=== PATIENT | female | born 1955 | race African-American/Black ===

== ENCOUNTER 2017-08-12 08:35 | Day surgery (SDC) | payer SELFPAY ==
[2017-08-11 11:17] VITALS: BMI 28.3
[2017-08-12] MEDS ORDERED: PROPOFOL 20 ML ONE ×4 (10:18→11:40)
[2017-08-12] MEDS ORDERED: MIDAZOLAM HCL 2 MG/2 ML SINGLE DOSE VIAL ONE ×3 (10:18)
[2017-08-12] MEDS ORDERED: ROCURONIUM BROMIDE 50 MG/5 ML VIAL ONE (10:18)
[2017-08-12] MEDS ORDERED: fentaNYL CITRATE 250 MCG/5 ML VIAL ONE (10:18)
[2017-08-12] MEDS ORDERED: EPINEPHrine/PF 1 MG/1 ML (1:1,000) AMPULE ONE ×2 (10:48→13:22)
[2017-08-12] MEDS ORDERED: BUPIVACAINE HCL/PF 0.25% (2.5MG/ML) 10 ML VIAL ONE (10:49)
[2017-08-12] MEDS ORDERED: HEPARIN NA (PORCINE) 5,000 UNITS/ML 1ML VIAL ONE (11:00)
[2017-08-12] MEDS ORDERED: CLINDAMYCIN PHOSPHATE 600 MG/4 ML VIAL ONE (11:05)
[2017-08-12] MEDS ORDERED: CLINDAMYCIN PHOSPHATE 600 MG/4 ML VIAL IVPB ONE (11:10)
[2017-08-12] MEDS ORDERED: DEXAMETHASONE SOD PHOSPHATE 4 MG/1 ML VIAL ONE (11:11)
[2017-08-12] MEDS ORDERED: ONDANSETRON 4 MG/2 ML VIAL ONE (11:11)
[2017-08-12] MEDS ORDERED: HEPARIN NA (PORCINE) 5,000 UNITS/ML 1ML VIAL SQ ONE (11:12)
[2017-08-12] MEDS ORDERED: LIDOCAINE HCL 1%, 10 MG/ML (20ML VIAL) ONE (13:22)
[2017-08-12] MEDS ORDERED: LIDOCAINE HCL 1%, 10 MG/ML (20ML VIAL) INF ONE (13:24)
[2017-08-12] MEDS ORDERED: EPINEPHrine/PF 1 MG/1 ML (1:1,000) AMPULE SQ ONE (13:26)
[2017-08-12] MEDS ORDERED: BACITRACIN 15 GM TUBE TOPICAL OINTMENT ONE (14:19)
[2017-08-12] MEDS ORDERED: NITROGLYCERIN 2% OINTMENT - 1GM PACKET TD ONE ×2 (14:25→15:00)
[2017-08-12] MEDS ORDERED: NEOSTIGMINE METHYLSULFATE 0.5 MG/ML - 10 ML MDV ONE (14:30)
[2017-08-12] MEDS ORDERED: oxyCODONE HCL 5 MG TABLET PO PRN (14:59)
[2017-08-12] MEDS ORDERED: ONDANSETRON 4 MG/2 ML VIAL IVPB PRN (14:59)
[2017-08-12] MEDS ORDERED: MORPHINE SULFATE 10 MG/1 ML *VIAL IVPUSH PRN ×2 (14:59→15:33)
[2017-08-12] MEDS ORDERED: LACTATED RINGERS SOLUTION 1,000 ML IV SCH ×2 (15:00→15:15)
--- NOTE | 2017-08-12 15:03 | OP ---
Operative Note - Note: Operative Date: 08/12/17 Pre-Operative Diagnosis: Abdominal deformity Operation: abdominoplasty with liposuction Post-Operative Diagnosis: Same as Pre-op Surgeon: Leobardo Vela Anesthesia: General Drains & Tubes with Location: VERNON x 2 abdomen
[2017-08-12] MEDS ORDERED: ONDANSETRON 4 MG/2 ML VIAL IVPUSH PRN (15:05)
[2017-08-12] MEDS ORDERED: CLINDAMYCIN PHOSPHATE 300 MG/2 ML VIAL ONE (18:39)
[2017-08-12] MEDS ORDERED: CLINDAMYCIN PHOSPHATE 300 MG/2 ML VIAL IVPB ONE (18:43)
[2017-08-13] MEDS ORDERED: PT OWN MED DRAWER 7, Y5N ONE (01:14)
[2017-08-13] MEDS: CLINDAMYCIN 300 MG PREMIX IVPB 300 MG/50 ML BAG IVPB SCH ×3 (01:32→09:37)
[2017-08-13] MEDS ORDERED: HEPARIN NA (PORCINE) 5,000 UNITS/ML 1ML VIAL SQ SCH (07:00)
--- NOTE | 2017-08-13 07:32 | PN ---
Progress Note (short form) - Note Progress Note: VSS, ambulating well, All tissues viable. OK for discharge
--- NOTE | 2017-08-13 10:25 | OP ---
DATE OF OPERATION: 08/12/2017 TITLE OF PROCEDURE: Abdominoplasty with mid epigastric and flank liposuction. ATTENDING SURGEON: Leobardo Vela MD ANESTHESIA: General endotracheal anesthesia. PREOPERATIVE DIAGNOSIS: Aesthetic abdominal deformity. POSTOPERATIVE DIAGNOSIS: Aesthetic abdominal deformity. The patient is seen in the holding area. Risks, benefits and alternatives to the procedure are discussed at length. She is marked in the standing position awake and aware of all incisions and resulting scars. Patient is counseled on all risks, benefits and alternatives to the procedure, understands and agrees to proceed. Sequential compression stockings, SAMMI hose are applied in the holding area. Subcutaneous heparin 5000 units is given in the holding area. Patient is brought to the operating room. A gram of Ancef is given preoperatively. She is positioned by surgical and anesthesia teams. She is prepped and draped in standard surgical fashion after which a timeout was called. Patient, procedure, side, sites are verified. At this point, an incision is made along the infrapannicular crease. Dissection carried down to the level of the abdominal wall fascia. Dissection is then carried along the abdominal wall fascia to the level of the umbilicus. Perforating blood vessels are ligated with suture and Bovie cautery as needed. The umbilicus is circumcised and developed on a fibrofatty stalk at the level of the abdominal wall fascia. Dissection is then carried beyond the umbilicus to the xiphoid process and the midline costal margins bilaterally. At this point, a midline plication is performed, first with a series of interrupted buried [id number] 1 Prolene imbricating sutures along the midline of the fascia. A line of these is performed superior to the umbilicus and a separate line inferior to the umbilicus. A 2nd layer is then performed with a running locking 1 Prolene suture, again above and below the umbilicus, leaving a wide berth for the umbilicus to be translocated. Several interrupted reinforcing sutures with 0 Prolene are placed in certain bay positions. The endpoint is a smooth even contour of the abdominal wall fascia with even uniform tension. Hemostasis meticulously achieved at this point. The deep surface of the abdominoplasty flap is thinned of its sub-Luis Fernando fat with facelift scissors. Meticulous hemostasis once again achieved. Patient is brought to a seated upright position at 30 degrees where the flap is transposed and excess skin and fat are removed. The skin is tailor tacked. The position of the umbilicus is marked. A Star Trek pattern for umbilical translocation is made in the abdominoplasty flap. The umbilicus is converted to the same shape and is then translocated and inset with a series of interrupted buried deep dermal 3-0 Monocryl suture followed by a running 4-0 nylon suture. The inferior 6 o'clock flap of the defect is inset into the 6 o'clock notch of the umbilicus. A size 10 flat J-P drain is brought out through either side of the incision, the right side in the superior recess of the wound, the left side in the inferior recess of the wound. The closure is then performed after tailor tacking with marija dog ear excision and closure with interrupted superficial fascial system buried 2-0 Vicryl suture followed by a series of interrupted buried deep dermal 3-0 Monocryl suture. Prior to final closure, wetting solution is infiltrated. The wetting solution is a liter of normal saline with 1 ampule of 1:1000 epinephrine and 20 mL of 1:100,000 lidocaine 1% plain. A full 20 minutes is waited for hemostatic effect after which the liposuction is commenced with 3- and 4-mm cannulas in bilateral flanks and the mid epigastrium. Total lipoaspirate for this case is 100 mL per flank and 350 mL in the mid epigastrium. Endpoint is a smooth even contour. There is good vascularity of the flap seen throughout the process. Drain is placed to bulb suction. The completion of the abdominal closure is performed with a running 3-0 PDS V-Loc suture in the mid dermis. Several 5-0 nylon skin sutures are placed. Dressings are applied with full-length Steri-Strips, bacitracin, Xeroform within the umbilicus, ABD, gauze and an abdominal binder applied. Patient is transferred in a flexed position to her hospital bed, having tolerated the procedure well. Transferred to recovery without complication. Ira [id number]
--- NOTE | 2017-08-13 10:31 | PN ---
Progress Note (short form) - Note Progress Note: S: Pt POD #1, S/P Abdominoplasty, OOB in Chair, looks great O: VSS pt stable, taking PO , pain 1-2/10, on PO meds A/P Pt offers no complaints. Going home today, No apparent anestheric complications noted.
[2017-08-13 12:12] VITALS: BP 118/72; PULSE 78; TEMP 98.4
--- NOTE | 2017-08-14 17:25 | PATH ---
Surgical Pathology Report Patient Name: RAY MARTINEZ [facility]. Rec. #: [id number] /Age/Gender: 1955 (Age: 61) / F Account: [id number] Location: AMBULATORY SURG Taken: 08/12/2017 Received: 08/13/2017 Reported: 08/14/2017 Physicians: Leobardo Vela Specimen(s) Received A: ABDOMINAL TISSUE B: SUCTIONED FAT Clinical History Cosmetic Final Diagnosis A. ABDOMINAL TISSUE, ABDOMINOPLASTY UNREMARKABLE SKIN AND FIBROADIPOSE TISSUE. MACROSCOPIC DIAGNOSIS. B. SUCTIONED FAT, ABDOMINOPLASTY: BLOOD AND ADIPOSE TISSUE. MACROSCOPIC DIAGNOSIS. Electronically Signed Tara Eng M.D. Gross Description A. Received in formalin labeled "abdominal tissue," is an 845 g, 29.0 x 15.0 x 4.0 cm aggregate of 2 brown, triangular, unoriented portions of skin with underlying yellow, lobulated adipose tissue. No epidermal lesions are identified. Sectioning reveals unremarkable underlying soft tissue. No sections are submitted, gross only. B. Received is approximately 400 mL of fat and blood. No sections are submitted, gross only. /08/13/2017 saudi08/13/2017
== END 2017-08-13 11:17 | disposition home or self-care (01) ==
LOC: JASUSAT 08:35 → J8W 20:07 → JASUSAT 08-13 11:17
PROVIDERS: ATTEND Plastic Surgery
PROC: 0J063ZZ Alteration of Chest Subcutaneous Tissue and Fascia, Percutaneous Approach (ICD-10-PCS; 2017-08-12)
PROC: 0J080ZZ Alteration of Abdomen Subcutaneous Tissue and Fascia, Open Approach (ICD-10-PCS; principal; 2017-08-12 10:30)
DX: L98.7 Excessive and redundant skin and subcutaneous tissue (principal)
CPT/HCPCS: 74018-TC-FY; 74190-TC-FY; 88300-TC; 94010; 94760; J1644

== ENCOUNTER 2017-09-01 14:03 | Emergency (ER) | payer OTHER ==
[2017-09-01 14:20] VITALS: TEMP 98.6; BMI 27.8
[2017-09-01 14:57] LABS: BASO % 2.5 % (0-2.0); EOS % 4.2 % (0-4.5); HEMATOCRIT 42.6 % (32.4-45.2); HEMOGLOBIN 14.2 GM/dl (10.7-15.3); LYMPH % 34.4 % (8-40); MCH 29.9 pg (25.7-33.7); MCHC 33.3 g/dl (32.0-36.0); MEAN CELL VOLUME 89.7 fl (80-96); MEAN PLT VOLUME 7.6 fl (7.5-11.1); MONO % 9.6 % (3.8-10.2); NEUT % 49.3 % (42.8-82.8); PLATELET COUNT 367 K/MM3 (134-434); RBC 4.75 M/mm3 (3.60-5.2); RDW 12.6 % (11.6-15.6); WHITE BLOOD COUNT 7.9 K/mm3 (4.0-10.8)
[2017-09-01 15:05] LABS: URINE BILIRUBIN Negative (NEGATIVE); URINE BLOOD Negative (NEGATIVE); URINE GLUCOSE (UA) Negative (NEGATIVE); URINE KETONE Negative (NEGATIVE); URINE NITRITE Negative (NEGATIVE); URINE PROTEIN Negative (NEGATIVE); URINE UROBILINOGEN 0.2 (0.2-1.0)
[2017-09-01 15:15] LABS: URINE APPEARANCE HAZY; URINE COLOR YELLOW; URINE LEUK ESTERASE 2+ (NEGATIVE)
[2017-09-01 15:18] LABS: ALBUMIN 3.5 g/dl (3.5-5.0); ALK PHOS 68 U/L (32-92); ANION GAP 9 (8-16); BLOOD UREA NITROGEN 10 mg/dl (7-18); CALCIUM 9.2 mg/dl (8.4-10.2); CHLORIDE 101 mmol/L (98-107); CO2 25 mmol/L (22-28); CREATININE 0.8 mg/dl (0.6-1.3); GLUCOSE,RANDOM 100 mg/dl (74-106); POTASSIUM 3.6 mmol/L (3.5-5.1); SGOT/AST 26 U/L (10-42); SGPT/ALT 22 U/L (10-40); SODIUM 135 mmol/L (136-145); TOT PROT 7.4 g/dl (6.4-8.3)
[2017-09-01 15:27] LABS: URINE RBC 0-3 /hpf (0-3)
[2017-09-01 15:29] LABS: BILIRUBIN,TOTAL < 0.5 mg/dl (0.2-1.0)
--- NOTE | 2017-09-01 16:12 | PDOC ---
History of Present Illness <Yash Finney - Last Filed: 09/01/17 17:39> - History of Present Illness Initial Comments: 09/01/17 16:08 "The patient is a 61 year old female, with a significant past medical history of hypertension and recent abdominoplasty 08/12, who presents to the emergency department with abdominal discomfort, bloating and decrease in appetite. The patient states that since her abdominoplasty, she has had abdominal discomfort described as a tightness around her waist that is made worse with movement. The patient states she is not having any significant abdominal pain but that she feels like something is squeezing her abdomen. Pt was initially seen in another ER for this complaint and had a CT scan to r/o abscess. The CT was normal and pt was given a course of PO abx, which she completed. She subsequently developed diarrhea and was started on Flagyl for this, which she is still taking. Pt states her diarrhea has resolved. Pt denies recent fevers, chills. She denies recent nausea, vomit, diarrhea or constipation. She denies recent dysuria, frequency, urgency or hematuria. She denies recent chest pain or shortness of breath. Allergies: Multiple Allergies. See nursing notes. Past surgical history: Abdominoplasty " <Mike Joaquin - Last Filed: 09/01/17 19:13> - General Chief Complaint: Pain Stated Complaint: ABDOMINAL PAIN Time Seen by Provider: 09/01/17 14:22 Past History <Yash Finney - Last Filed: 09/01/17 17:39> - Past Medical History Anemia: No Asthma: No Cancer: No Cardiac Disorders: No CVA: No COPD: No CHF: No DVT: No Dementia: No Diabetes: No GI Disorders: No Disorders: No HTN: Yes Hypercholesterolemia: No Liver Disease: No Seizures: No Thyroid Disease: No - Surgical History Abdominal Surgery: Yes (abdominoplasty x 3 wks ago) Appendectomy: No Cardiac Surgery: No Cholecystectomy: No Lung Surgery: No Neurologic Surgery: No Orthopedic Surgery: No - Suicide/Smoking/Psychosocial Hx Smoking History: Never smoked Have you smoked in the past 12 months: No Number of Cigarettes Smoked Daily: 0 Hx Alcohol Use: No Drug/Substance Use Hx: No Substance Use Type: None Hx Substance Use Treatment: No <Mike Joaquin - Last Filed: 09/01/17 19:13> - Past Medical History Allergies/Adverse Reactions: Allergies Allergy/AdvReac Type Severity Reaction Status Date / Time cephalexin monohydrate Allergy Severe ANAPHYLACTIC Verified 09/01/17 14:06 [From Keflex] REACTION latex Allergy Severe Rash Verified 09/01/17 14:06 peach [Rice] Allergy Severe Swelling Verified 09/01/17 14:06 ALMOND Allergy Severe Swelling Uncoded 08/12/17 09:34 CHERRIES Allergy Severe Swelling Uncoded 08/12/17 09:34 Home Medications: Ambulatory Orders Hydrochlorothiazide [Hctz -] 25 mg PO DAILY 11/23/13 Amlodipine Besylate/Benazepril [Lotrel 5-20 mg Capsule] 1 each PO DAILY Docusate Sodium [Colace -] 100 mg PO DAILY #30 capsule 09/01/17 Metronidazole 500 mg PO TID 09/01/17 Sennosides [Senna] 2 tab PO DAILY #30 tablet 09/01/17 Review of Systems - Review of Systems Comments:: 09/01/17 16:11 "GENERAL/CONSTITUTIONAL: No fever or chills. No weakness. HEAD, EYES, EARS, NOSE AND THROAT: No change in vision. No ear pain or discharge. No sore throat. CARDIOVASCULAR: No chest pain or shortness of breath. RESPIRATORY: No cough, wheezing, or hemoptysis. GASTROINTESTINAL: +Abdominal discomfort. +Decrease in appetite. +Bloating. No nausea, vomiting, diarrhea or constipation. GENITOURINARY: No dysuria, frequency, or change in urination. MUSCULOSKELETAL: No joint or muscle swelling or pain. No neck or back pain. SKIN: No rash NEUROLOGIC: No headache, vertigo, loss of consciousness, or change in strength/ sensation. ENDOCRINE: No increased thirst. No abnormal weight change. HEMATOLOGIC/LYMPHATIC: No anemia, easy bleeding, or history of blood clots. ALLERGIC/IMMUNOLOGIC: No hives or skin allergy. " <Mike Joaquin - Last Filed: 09/01/17 19:13> *Physical Exam - Vital Signs Last Vital Signs Temp Pulse Resp BP Pulse Ox 98.6 F 70 18 132/75 98 09/01/17 14:04 09/01/17 14:04 09/01/17 14:04 09/01/17 14:04 09/01/17 14:04 <RegYash - Last Filed: 09/01/17 17:39> - Vital Signs Last Vital Signs Temp Pulse Resp BP Pulse Ox 98.6 F 70 18 132/75 98 09/01/17 14:04 09/01/17 14:04 09/01/17 14:04 09/01/17 14:04 09/01/17 14:04 - Physical Exam Comments: 09/01/17 16:11 "GENERAL: Awake, alert, and fully oriented, in no acute distress HEAD: No signs of trauma EYES: PERRLA, EOMI, sclera anicteric, conjunctiva clear ENT: Auricles normal inspection, hearing grossly normal, nares patent, oropharynx clear without exudates. Moist mucosa NECK: Nontender, no stepoffs, Normal ROM, supple, no lymphadenopathy, JVD, or masses LUNGS: Breath sounds equal, clear to auscultation bilaterally. No wheezes, and no crackles HEART: Regular rate and rhythm, normal S1 and S2, no murmurs, rubs or gallops ABDOMEN: + Slightly indurated skin with no obvious fluctuance, no drainage, non- distended, normoactive bowel sounds. No guarding, no rebound. No masses EXTREMITIES: Normal range of motion, no edema. No clubbing or cyanosis. No cords, erythema, or tenderness NEUROLOGICAL: Cranial nerves II through XII intact. 5/5 strength and sensation in all extremities, Normal speech, normal gait, normal cerebellar function SKIN: Warm, Dry, normal turgor, no rashes or lesions noted. " <Mike Joaquin - Last Filed: 09/01/17 19:13> ED Treatment Course - LABORATORY CBC & Chemistry Diagram: 09/01/17 14:45 09/01/17 14:45 - ADDITIONAL ORDERS Additional order review: Laboratory Results 09/01/17 09/01/17 14:45 14:17 Sodium 135 L Potassium 3.6 Chloride 101 Carbon Dioxide 25 Anion Gap 9 BUN 10 D Creatinine 0.8 Creat Clearance w eGFR > 60 Random Glucose 100 Calcium 9.2 Total Bilirubin < 0.5 D AST 26 ALT 22 Alkaline Phosphatase 68 D C-Reactive Protein Cancelled Total Protein 7.4 D Albumin 3.5 Urine Color Yellow Urine Appearance Hazy Urine pH 6.0 Ur Specific Wilmot <= 1.005 Urine Protein Negative Urine Glucose (UA) Negative Urine Ketones Negative Urine Blood Negative Urine Nitrite Negative Urine Bilirubin Negative Urine Urobilinogen 0.2 Ur Leukocyte Esterase 2+ H Urine RBC 0-3 Urine WBC 10-15 Ur Epithelial Cells 3-5 09/01/17 14:45 RBC 4.75 D MCV 89.7 MCHC 33.3 RDW 12.6 MPV 7.6 Neutrophils % 49.3 Lymphocytes % 34.4 Monocytes % 9.6 Eosinophils % 4.2 Basophils % 2.5 H - RADIOLOGY Radiograph Interpretation: 09/01/17 16:42 EXAM#: TYPE/EXAM: RESULT: [id number] CT/ABDOMEN PELVIS CT WITH CONTR INDICATION: Clinical suspicion for abdominal wall abscess. TECHNIQUE: CT scan of the abdomen and pelvis with oral contrast following the intravenous administration of 80 mL of Omnipaque 350 contrast. COMPARISON: 11/27/2013 CT abdomen/pelvis. FINDINGS: There is extensive subcutaneous fat stranding in the anterior and lateral abdominal wall with skin thickening. There are multiple gas locules in the right lower quadrant anterior abdominal wall. There is a thin peripherally enhancing fluid collection in the midline infraumbilical anterior abdominal wall measuring approximately 1.0 x 2.5 cm in AP and transverse dimensions. There is subsegmental atelectasis versus scarring in the basal segments of the right lower lobe. The heart is not enlarged. Normal liver size and contour. The gallbladder is contracted. There is no evidence of biliary ductal dilatation. The pancreas is unremarkable. Normal size spleen with no focal lesions. There is no adrenal gland mass. The kidneys are normal size with symmetric enhancement. There is no hydroureteronephrosis. A few subcentimeter cortical hypodensities in the lower pole of the right kidney are too small to characterize. Normal caliber abdominal aorta. There are no pathologically enlarged lymph nodes by CT size criteria within the abdomen or pelvis. There is no evidence of bowel obstruction. A normal-appearing retrocecal appendix identified. There are colonic diverticula with no evidence of diverticulitis. There is no free intraperitoneal air or ascites. The urinary bladder is unremarkable. The uterus is lobulated leiomyomatous with multiple calcified , degenerating leiomyomas. There is a subserosal exophytic leiomyoma along the right anterolateral wall of the uterus which measures approximately 3.3 x 4.1 x 4.8 cm in AP, transverse and craniocaudal dimensions. There is trace degenerative grade 1 anterolisthesis of L4 and L5. There is at least moderate canal stenosis at L4-L5 and L5-S1 secondary to bulging annulus, facet arthropathy and thickening of ligamentum flavum. There is also severe narrowing of the right L5-S1 neural foramen with compression of the exiting nerve root and moderate narrowing of the left L5-S1 and right L4-L5 neural foramina with encroachment on the exiting nerve roots. IMPRESSION: 1. Extensive abdominal wall subcutaneous fat stranding with skin thickening and subcutaneous gas is presumably attributed to recent surgery. A 1.0 x 2.5 cm rim-enhancing collection in the midline infraumbilical anterior abdominal wall could be a postsurgical serosanguineous collection. Superimposed infection cannot be excluded radiologically. Correlate clinically. 2. Leiomyomatous uterus as described above. 3. Please refer to the report above for additional findings. Reported By: Dipesh Victor DO <Yash Finney - Last Filed: 09/01/17 17:39> - LABORATORY CBC & Chemistry Diagram: 09/01/17 14:45 09/01/17 14:45 - ADDITIONAL ORDERS Additional order review: Laboratory Results 09/01/17 09/01/17 14:45 14:17 Sodium 135 L Potassium 3.6 Chloride 101 Carbon Dioxide 25 Anion Gap 9 BUN 10 D Creatinine 0.8 Creat Clearance w eGFR > 60 Random Glucose 100 Calcium 9.2 Total Bilirubin < 0.5 D AST 26 ALT 22 Alkaline Phosphatase 68 D C-Reactive Protein Cancelled Total Protein 7.4 D Albumin 3.5 Urine Color Yellow Urine Appearance Hazy Urine pH 6.0 Ur Specific Wilmot <= 1.005 Urine Protein Negative Urine Glucose (UA) Negative Urine Ketones Negative Urine Blood Negative Urine Nitrite Negative Urine Bilirubin Negative Urine Urobilinogen 0.2 Ur Leukocyte Esterase 2+ H Urine RBC 0-3 Urine WBC 10-15 Ur Epithelial Cells 3-5 09/01/17 14:45 RBC 4.75 D MCV 89.7 MCHC 33.3 RDW 12.6 MPV 7.6 Neutrophils % 49.3 Lymphocytes % 34.4 Monocytes % 9.6 Eosinophils % 4.2 Basophils % 2.5 H - RADIOLOGY Radiology Studies Ordered: Category Date Time Status ABDOMEN & PELVIS CT WITH CONTR [CT] Stat CT Scan 09/01/17 14:23 Ordered <Mike Joaquin - Last Filed: 09/01/17 19:13> Medical Decision Making - Medical Decision Making 09/01/17 17:[address] Vela at 4:30 pm. Pending call back. Call placed to Dr. Vela at 5:30 pm. Pending call back. <Yash Finney - Last Filed: 09/01/17 17:39> - Medical Decision Making 09/01/17 16:11 61 F with abdominal discomfort and "tightness" s/p abdominoplasty 08/12. Will obtain CT to r/o post-op infection. - Labs - CTAP - Dr. Vela aware of pt 09/01/17 19:[address] with 1 x 2.5 cm collection. Pt with no white count, no fevers. Dr. Vela in ED, has evaluated pt. He does not believe collection to be abscess. Pt with no focal abdominal tenderness. Dr. Vela recommends continuing flagyl, aggressive bowel regimen for constipation, and pain control. Pt reassessed - pain is tolerable. Pt able to tolerate PO without N/V. Pt is well appearing, with normal vitals. Clinically stable for DC at this time. I discussed the physical exam findings, ancillary test results and final diagnoses with the patient. I answered all of the patient's questions. The patient was satisfied with the care received and felt comfortable with the discharge plan and treatment plan. The patient agrees to follow up with the primary care physician within 24-72 hours. <Mike Joaquin - Last Filed: 09/01/17 19:13> *DC/Admit/Observation/Transfer - Attestations Scribe Attestion: 09/01/17 16:19 Documentation prepared by Yash Finney, acting as medical radiation therapist for Mike Joaquin MD. <Yash Finney - Last Filed: 09/01/17 17:39> - Attestations Physician Attestion: 09/01/17 19:13 I, Dr. Mike Joaquin MD, attest that this document has been prepared under my direction and personally reviewed by me in its entirety. I further attest, that it accurately reflects all work, treatment, procedures and medical decision -making performed by me. <Mike Joaquin - Last Filed: 09/01/17 19:13> Diagnosis at time of Disposition: Postoperative pain - Discharge Dispostion Disposition: HOME - Referrals Referrals: Leobardo Vela MD [Staff Physician] - - Patient Instructions Printed Discharge Instructions: DI for Abdominal Pain-Adult Additional Instructions: Continue taking your antibiotics as prescribed. Take the senna and colace as prescribed to prevent constipation. If you experience worsening pain, fevers, redness in your abdomen, swelling, bleeding or pus, or any other concerning symptoms, return to the ER immediately. Otherwise, follow up with Dr. Vela within 1 week for a re-evaluation.
[2017-09-01 18:28] VITALS: BP 148/98; PULSE 81
--- NOTE | 2017-09-01 19:28 | PN ---
Progress Note (short form) - Note Progress Note: Patient has been complaining of "squeezing" abdominal pain since abdominoplasty. On early post op visit the abdomen was noted to be slightly reddish and she was started on PO abx. All drains were removed and has low, serosanguinous output. Upon further similar complaints, she was sent to [facility] ER where she was discharged with a normal CT scan, normal WBC and no fever. In the office several days later she complained of diarrhea and was sent to PMD for evaluation and treatment of C. Diff. PO abx wee stopped and PO flagyl started which she continues on now. Her diarrhea has resolved, but she continues to complain of "squeezing abdominal pain" I had prescribed flexeril on Friday, but the patient admits to being poorly compliant with it. She states that her pain is mostly with activity in the standing position, not while lying supine. I asked patient to return to ER here for further evaluation and new CT. On exam: Abd is soft with no point tenderness or clinical evidence of collection or abscess. No peritoneal signs. The slight erythema is diffuse throughout the entire area of abdominal liposuction and unchanged for weeks. It is very unlikely infectious. CT shows high quantities of stool throughout the entire colon. No intra- abdominal pathology, small infra-umbilical midline subQ simple fluid collection c/w seroma. Too small to drain without radiographic guidance WBC normal, afebrile I suspect that her pain is from a combination of being constipated combined with muscle spasm. I recommend a bowel regimen per ER physician and instructed patient on regual scheduled use of flexeril. I will see her again on Friday.
== END 2017-09-01 19:33 | disposition home or self-care (01) ==
LOC: FER 14:03
DX: G89.18 Other acute postprocedural pain (principal)
CPT/HCPCS: 36415; 74177-TC; 80053; 81003; 81015; 83605; 83690; 85025; 86140; 87040; 87086; 99282-25